=== PATIENT | female | born 1990 | race Caucasian/White ===

== ENCOUNTER 2018-12-17 13:34 | Emergency (ER) | payer OTHER ==
[2018-12-17] MEDS: ONDANSETRON (ODT) 4 MG TAB ODT (15:49)
[2018-12-17] MEDS: KETOROLAC 30 MG INJ IM (15:50)
== END 2018-12-17 16:39 | disposition home or self-care (01) ==
LOC: FTE 13:34
DX: R51 Headache (principal)
CPT/HCPCS: 81025; 96372; 99284-25